=== PATIENT | female | born 1940 | race Caucasian/White ===

== ENCOUNTER → 2019-10-25 | Outpatient (CLI) | payer MEDICARE ==
[~2019-10-25] MED LIST: ALFU10TA4 PO; AMLO-150 PO; ASPI-496 PO; ATOR10TA9 PO; BUPR300T94 PO; CARB1TAB3 PO; CHOL10003 PO; CHOL200078 PO; CLON0.1T2 PO; CLON1TAB23 PO; DICL100G19 TP; DICY10CA3 PO; DICY10SY PO; LEVO88TA2 PO; LINA290C PO; PANT40TA5 PO; POLY17PO5 PO; QUET300T7 PO; ROTI1PAT TP; VITA1TAB19 PO
[2019-10-25 11:50] LABS: ALANINE AMINOTRANSFERASE 13 U/L (12-78); ALBUMIN 3.5 g/dL (3.4-5.0); ANION GAP 2 mmol/L (5-15); CALCIUM 8.6 mg/dL (8.5-10.1); CHLORIDE 111 mmol/L (98-107); CREATININE 0.83 mg/dL (0.55-1.02)
[2019-10-25 11:52] LABS: BASOPHILS # (AUTO) 0.03 x10^3/uL (0-0.1); BASOPHILS % (AUTO) 0 % (0-1); EOSINOPHILS # (AUTO) 0.04 x10^3/uL (0-0.4); EOSINOPHILS % (AUTO) 1 % (1-7); LYMPHOCYTES # (AUTO) 1.49 x10^3/uL (1-3.4); LYMPHOCYTES % (AUTO) 24 % (22-44); MD NO; MEAN CORPUSCULAR HEMOGLOBIN 32.6 pg (27.0-34.8); MEAN CORPUSCULAR VOLUME 101.8 fL (80-100); MEAN PLATELET VOLUME 7.7 fL (7.4-10.4); MONOCYTES # (AUTO) 0.76 x10^3/uL (0.2-0.8); MONOCYTES % (AUTO) 12 % (2-9); NEUTROPHILS # (AUTO) 3.85 x10^3/uL (1.8-6.8); NEUTROPHILS % (AUTO) 63 % (42-75); PLATELET COUNT 320 x10^3/uL (130-400); RED BLOOD COUNT 3.92 x10^6/uL (3.82-5.3); RED CELL DISTRIBUTION WIDTH 14.8 % (9.6-15.2)
[2019-10-25 11:53] LABS: ALKALINE PHOSPHATASE 71 U/L (45-117); BILIRUBIN,TOTAL 0.4 mg/dL (0.2-1.0); TOTAL PROTEIN 6.6 g/dL (6.4-8.2)
== END | disposition home or self-care (01) ==
LOC: STAR 10:13
PROVIDERS: ATTEND Otolaryngology
DX: Z01.818 Encounter for other preprocedural examination (principal); J38.01 Paralysis of vocal cords and larynx, unilateral; R49.0 Dysphonia
CPT/HCPCS: 36415; 80053; 85025; 93005

== ENCOUNTER 2019-11-04 05:14 | Observation (INO) | payer MEDICARE ==
[~2019-11-04] VITALS: Ht 167.6 cm; Wt 91.0 kg
[~2019-11-04 05:14] MED LIST changes: -PANT40TA5 PO; +PANT40TA6 PO
[2019-11-04] MEDS ORDERED: LACTATED RINGERS 1,000 ML IV SCH (05:58)
[2019-11-04] MEDS ORDERED: CHLORHEXIDINE 15 ML UDC MM ONE (06:00)
[2019-11-04 06:04] VITALS: BP 144/89
[2019-11-04] MEDS ORDERED: LIDOCAINE 1%-EPI 1:100K, 20ML ONE (06:44)
[2019-11-04] MEDS ORDERED: MIDAZOLAM 1 MG/ML, 2ML ONE (07:02)
[2019-11-04] MEDS ORDERED: LIDOCAINE-MPF 2% ,5ML ONE (07:02)
[2019-11-04] MEDS ORDERED: PROPOFOL 10 MG/ML, 20ML ONE (07:02)
[2019-11-04] MEDS ORDERED: LIDOCAINE 1%, 20ML ONE (07:09)
[2019-11-04] MEDS ORDERED: GLYCOPYRROLATE 0.2MG/1ML, 5ML ONE (07:09)
[2019-11-04] MEDS ORDERED: DEXAMETHASONE 4 MG/ML, 1ML ONE (07:09)
[2019-11-04] MEDS ORDERED: LABETALOL 5MG/ML, 20ML ONE (07:09)
[2019-11-04] MEDS ORDERED: ONDANSETRON 2MG/ML, 2ML ONE (07:09)
[2019-11-04] MEDS ORDERED: CEFAZOLIN 1,000 MG ONE (07:09)
[2019-11-04] MEDS ORDERED: METHOCARBAMOL 1,000 MG in DEXTROSE 5% 100 ML IV PRN (08:30)
[2019-11-04] MEDS ORDERED: ACETAMINOPHEN 325 MG TABLET PO PRN (08:30)
[2019-11-04] MEDS ORDERED: KETOROLAC 30 MG/1 ML IV PRN (08:30)
[2019-11-04] MEDS ORDERED: HYDROmorphone 1 MG/ML, 1ML INJ IVPush PRN (08:30)
[2019-11-04] MEDS ORDERED: HALOPERIDOL 5 MG/ML IV PRN (08:30)
[2019-11-04] MEDS ORDERED: LORazepam 2 MG/ML, 1ML IVPush PRN (08:30)
[2019-11-04] MEDS ORDERED: EPHEDRINE 50 MG/ML, 1ML IVPush PRN (08:30)
[2019-11-04] MEDS ORDERED: DIAZEPAM 5 MG/ML, 2ML IVPush PRN (08:30)
[2019-11-04] MEDS ORDERED: ALBUTEROL/IPRATROPIUM 2.5MG/0.5MG, 3 ML NPPB PRN (08:30)
[2019-11-04] MEDS ORDERED: METOCLOPRAMIDE 5 MG/ML, 2ML IVPush PRN (08:30)
[2019-11-04] MEDS ORDERED: hydrALAzine 20 MG/ML, 1ML IV PRN (08:30)
[2019-11-04] MEDS ORDERED: LABETALOL 5MG/ML, 20ML IV PRN (08:30)
[2019-11-04] MEDS ORDERED: HYDROcodone/APAP 7.5-325MG/15ML UDC PO PRN (08:30)
[2019-11-04] MEDS ORDERED: ONDANSETRON 2MG/ML, 2ML IVPush PRN (08:30)
[2019-11-04] MEDS ORDERED: MIDAZOLAM 1 MG/ML, 2ML IV PRN (08:30)
[2019-11-04] MEDS ORDERED: EPHEDRINE 50 MG/ML, 1ML IM PRN (08:30)
[2019-11-04] MEDS ORDERED: MEPERIDINE/PF 25MG/0.5ML IVPush PRN (08:30)
[2019-11-04] MEDS ORDERED: OXYcodone 5 MG/5 ML ORAL.SOL UDC ONE (09:28)
[2019-11-04] MEDS ORDERED: FENTANYL PF 100 MCG/2ML ONE (09:28)
[2019-11-04] MEDS: FENTANYL PF 100 MCG/2ML IV PRN ×4 (09:30→09:50)
[2019-11-04] MEDS: OXYcodone 5 MG/5 ML ORAL.SOL UDC PO PRN ×2 (09:30→11:31)
[2019-11-04] MEDS ORDERED: hydrALAzine 20 MG/ML, 1ML ONE (09:42)
[2019-11-04] MEDS ORDERED: ACETAMINOPHEN 500 MG TABLET PO PRN (12:00)
[2019-11-04] MEDS ORDERED: LINZESS 290 MCG PO PRN (12:00)
[2019-11-04] MEDS ORDERED: OXYcodone/APAP 5/325MG TABLET PO PRN (12:00)
[2019-11-04] MEDS ORDERED: DICYCLOMINE 10 MG CAPSULE PO PRN (12:00)
[2019-11-04] MEDS: DEXAMETHASONE 4 MG/ML, 1ML IV SCH (12:05)
[2019-11-04] MEDS: LACTATED RINGERS 1,000 ML IV SCH (12:06)
[2019-11-04 13:55] VITALS: BP 161/73
[2019-11-04] MEDS: CEFAZOLIN PMX 2GM/50ML 50 ML IVPB SCH ×2 (15:12→23:36)
[2019-11-04] MEDS: CARBIDOPA/LEVODOPA 25 MG/250 MG TABLET PO SCH ×2 (17:02→21:04)
[2019-11-04 20:03] VITALS: BP 102/67
[2019-11-04] MEDS ORDERED: ATORVASTATIN 10 MG TABLET PO SCH (21:00)
[2019-11-04] MEDS ORDERED: QUETIAPINE 100MG TABLET PO SCH (21:00)
[2019-11-04] MEDS: BUPROPION SR 150 MG TABLET PO SCH (21:03)
[2019-11-04] MEDS: POLYETHYLENE GLYCOL 17 GM PACKET PO SCH (21:03)
[2019-11-05] MEDS: DEXAMETHASONE 4 MG/ML, 1ML IV SCH (00:41)
[2019-11-05 00:46] VITALS: BP 165/62
[2019-11-05] MEDS: LACTATED RINGERS 1,000 ML IV SCH (00:46)
[2019-11-05 04:00] VITALS: BP 128/70
[2019-11-05] MEDS ORDERED: PANTOPRAZOLE 40MG TABLET PO SCH (06:00)
[2019-11-05] MEDS ORDERED: LEVOTHYROXINE 88 MCG TABLET PO SCH (06:00)
[2019-11-05 07:12] VITALS: BP 138/66
[2019-11-05] MEDS: CARBIDOPA/LEVODOPA 25 MG/250 MG TABLET PO SCH (08:08)
[2019-11-05] MEDS: POLYETHYLENE GLYCOL 17 GM PACKET PO SCH (08:08)
[2019-11-05] MEDS: BUPROPION SR 150 MG TABLET PO SCH (08:09)
[2019-11-05] MEDS ORDERED: CHOLECALCIFEROL 1,000 UNIT TABLET PO SCH (09:00)
[2019-11-05] MEDS ORDERED: ROTIGOTINE 6 MG TP SCH (09:00)
[2019-11-05] MEDS ORDERED: VOLTAREN TP SCH (09:00)
[2019-11-05] MEDS ORDERED: CEPH-375 PO (10:04)
== END 2019-11-05 11:25 | disposition home or self-care (01) ==
LOC: OUT 05:14 → 4NE 11:23 → OUT 12:13
PROVIDERS: ADMIT Otolaryngology; ATTEND Otolaryngology
DX: J38.01 Paralysis of vocal cords and larynx, unilateral (principal); Z20.828 Contact with and (suspected) exposure to other viral communicable diseases; K21.9 Gastro-esophageal reflux disease without esophagitis; I10 Essential (primary) hypertension; Z86.73 Personal history of transient ischemic attack (TIA), and cerebral infarction without residual deficits
CPT/HCPCS: 31591; 36415; 87635; 96361; 96365; 96366; 96375; 96376; C1726; G0378; J0690; J1100; J2250; J2405; J2704; J3010; J3490; J7120

== ENCOUNTER 2019-11-18 09:57 | Emergency (ER) | payer MEDICARE ==
[~2019-11-18] VITALS: Ht 167.6 cm; Wt 92.0 kg
[~2019-11-18 09:57] MED LIST changes: +CEPH-375 PO
--- NOTE | 2019-11-18 10:17 | NUR ---
PT BIB EMS FOR LEFT NECK PAIN. RECENT ADMIT FOR SURGERY ON VOCAL BOX FROM COLLAPSE. DENIES CP, COUGH, CP. NO N/V . PAIN 10/23. NO TRAUMA, NO INCREASED SWELLING IN THE NECK.
[2019-11-18] MEDS ORDERED: DIAZEPAM 5 MG TABLET ONE (10:43)
--- NOTE | 2019-11-18 10:49 | NUR ---
MEDICATED PER ORDERS
[2019-11-18] MEDS ORDERED: DIAZEPAM 5 MG TABLET PO ONE (11:00)
--- NOTE | 2019-11-18 11:34 | NUR ---
daughter called for update. pt ready for ct
--- NOTE | 2019-11-18 12:28 | NUR ---
PT RSTING, VSS. WAITING FOR CT
--- NOTE | 2019-11-18 12:56 | NUR ---
PT BACK FROM CT.
[2019-11-18 13:48] VITALS: BP 165/49
--- NOTE | 2019-11-18 13:48 | NUR ---
Patient/Caregiver given discharge instructions and they have confirmed that they understand the instructions. Patient ambulatory with steady gait.
[2019-11-18] MEDS ORDERED: OMNIPAQUE 350 MG/ML, 100ML BOTTLE ONE (14:57)
== END 2019-11-18 13:51 | disposition home or self-care (01) ==
LOC: ED 10:11
DX: S16.1XXA Strain of muscle, fascia and tendon at neck level, initial encounter (principal); X58.XXXA Exposure to other specified factors, initial encounter; Y93.89 Activity, other specified; Y92.89 Other specified places as the place of occurrence of the external cause; Y99.8 Other external cause status
CPT/HCPCS: 70491; 99285; Q9967